=== PATIENT | female | born 1995 | race Caucasian/White ===

== ENCOUNTER 2017-12-25 18:42 | Emergency (ER) | payer MEDICAID ==
[~2017-12-25] VITALS: Ht 157.5 cm; Wt 73.5 kg
[2017-12-25 18:52] VITALS: BP 139/53; Ht 157.5 cm; Wt 73.5 kg
== END 2017-12-25 19:23 | disposition left against medical advice (07) ==
LOC: ED 18:42
DX: Z53.21 Procedure and treatment not carried out due to patient leaving prior to being seen by health care provider (principal)